=== PATIENT | female | born 1990 | race Caucasian/White ===

== ENCOUNTER 2016-11-05 03:07 | Emergency (ER) | payer MEDICAID, OTHER ==
[2016-11-05 03:18] VITALS: O2SAT 98
[2016-11-05] MEDS ORDERED: Sodium Chloride 0.9% 500 ML IV ONE (03:53)
[2016-11-05] MEDS ORDERED: Sodium Chloride 0.9% 1,000 ML ONE (04:10)
[2016-11-05 04:12] LABS: BASO # 0.1 K/uL (0.0-0.2); BASO % 0.7 % (0.0-2.0); EOS # 0.1 K/uL (0.0-0.7); EOS % 1.1 % (0.0-4.0); HEMATOCRIT 34.5 % (34.0-47.0); LYMPH # 1.9 K/uL (1.0-4.3); LYMPH % 25.2 % (20.0-40.0); MEAN CELL VOLUME 84.3 fL (81.0-99.0); MEAN CORPUSCULAR HEMOGLOBIN 28.1 pg (27.0-31.0); MEAN CORPUSCULAR HGB CONC 33.3 g/dL (33.0-37.0); MEAN PLATELET VOLUME 8.3 fL (7.2-11.7); MONO # 0.6 K/uL (0.0-0.8); MONO % 7.7 % (0.0-10.0); RED CELL DISTRIBUTION WIDTH 14.1 % (11.5-14.5); WHITE BLOOD COUNT 7.5 K/uL (4.8-10.8)
[2016-11-05 04:23] LABS: CHLORIDE 100 mmol/L (98-107); POTASSIUM 3.5 mmol/L (3.6-5.2); SODIUM 137 mmol/L (132-148)
[2016-11-05 04:25] LABS: GFR AFRICAN-AMERICAN > 60; RBC URINE 13 /hpf (0-3); URINE BACTERIA RARE (<OCC); URINE BILIRUBIN NEGATIVE (NEGATIVE); URINE BLOOD 1+ (NEGATIVE); URINE COLOR Yellow (YELLOW); URINE GLUCOSE (UA) NORMAL (Normal); URINE KETONE NEGATIVE (NEGATIVE); URINE LEUKOCYTE ESTERASE 1+ Leu/uL (Negative); URINE PROTEIN NEGATIVE (NEGATIVE); URINE UROBILINOGEN NORMAL mg/dL (0.2-1.0); WBC URINE 11 /hpf (0-5)
[2016-11-05 04:26] LABS: ALKALINE PHOSPHATASE 59 U/L (38-126); ALT/SGPT 19 U/L (9-52); AST/SGOT 20 U/L (14-36); BILIRUBIN,TOTAL 0.6 mg/dL (0.2-1.3); BLOOD UREA NITROGEN 12 mg/dL (7-17); CALCIUM 8.9 mg/dl (8.6-10.4); CARBON DIOXIDE 25 mmol/L (22-30); GLUCOSE,RANDOM 77 mg/dL (65-105); TOTAL PROTEIN 6.9 g/dL (6.3-8.3)
--- NOTE | 2016-11-05 04:30 | C.PDOC ---
History Of Present Illness 26 y/o female, , who is 22 weeks , presents to ED with complaint of left flank pain since last night. Patient reports history of kidney stones, and was seen in August for the same complaints. Denies nausea, vomiting, diarrhea, vaginal bleeding, or UTI symptoms. Time Seen by Provider: 11/05/16 03:28 Chief Complaint (Nursing): Female Genitourinary History Per: Patient History/Exam Limitations: no limitations Onset/Duration Of Symptoms: Days Current Symptoms Are (Timing): Still Present Reports Recently: Seen In ED Recent travel outside of the [place]: No Past Medical History Reviewed: Historical Data, Nursing Documentation, Vital Signs Vital Signs: Last Vital Signs Temp 98.1 F 11/05/16 03:15 Pulse 77 11/05/16 03:15 Resp 20 11/05/16 03:15 BP 108/65 11/05/16 03:15 Pulse Ox 98 11/05/16 05:09 - Medical History PMH: Kidney Stones Family History: States: Unknown Family Hx - Social History Hx Tobacco Use: No Hx Alcohol Use: No Hx Substance Use: No - Immunization History Hx Tetanus Toxoid Vaccination: No Hx Influenza Vaccination: No Hx Pneumococcal Vaccination: No Review Of Systems Except As Marked, All Systems Reviewed And Found Negative. Constitutional: Negative for: Fever, Chills Gastrointestinal: Positive for: Other (left flank pain). Negative for: Nausea, Vomiting, Diarrhea Genitourinary: Negative for: Dysuria, Frequency, Hematuria Physical Exam - Physical Exam Appears: Non-toxic, No Acute Distress Skin: Warm, Dry Head: Atraumatic, Normacephalic Oral Mucosa: Moist Chest: Symmetrical Cardiovascular: Rhythm Regular, No Murmur Respiratory: Normal Breath Sounds, No Rales, No Rhonchi, No Wheezing Gastrointestinal/Abdominal: Soft, No Tenderness, No Distention, No Guarding, No Rebound, Ascites, Other (gravid) Back: CVA Tenderness (Left), No Vertebral Tenderness, No Paraspinal Tenderness Pelvic: Other (deferred) Extremity: Normal ROM, Capillary Refill (< 2 sec. ) Neurological/Psych: Oriented x3, Normal Speech, Normal Cognition ED Course And Treatment - Laboratory Results Result Diagrams: 11/05/16 04:09 11/05/16 04:09 Urine POC: Positive O2 Sat by Pulse Oximetry: 98 (RA) Pulse Ox Interpretation: Normal Progress Note: Treated with IVFs and morphine. Labs ordered and reviewed. FHT 146 as per [place]. Pt is d/c to L& D Reevaluation Time: 05:33 Reassessment Condition: Improved (pt with moderate pain improvemnet, labs reviewed incl UA and d/w pt. Pt be d/c to L&D for NST) Disposition - Disposition Disposition: HOME/ ROUTINE Disposition Time: 05:34 Condition: STABLE Additional Instructions: Increase PO fluids Take meds as directed Follow up with your OB Return to ER if worse Prescriptions: Nitrofurantoin Macrocrystals [Macrobid] 1 cap PO BID #14 cap Instructions: Urinary Tract Infection in Women (ED) - Clinical Impression Clinical Impression: UTI (urinary tract infection) during - PA / MACHINE SEWER / Resident Statement MD/DO has reviewed & agrees with the documentation as recorded. - Scribe Statement The provider has reviewed the documentation as recorded by the Aguila Stern Provider Scribe Attestation: All medical record entries made by the Aguila were at my direction and personally dictated by me. I have reviewed the chart and agree that the record accurately reflects my personal performance of the history, physical exam, medical decision making, and the department course for this patient. I have also personally directed, reviewed, and agree with the discharge instructions and disposition.
[2016-11-05 06:08] VITALS: BP 126/76; PULSE 75; RESP 18; TEMP 98.3
--- NOTE | 2016-11-06 10:29 | OBHP ---
Datetime: 11/05/2016 07:26 IP Adm Impression: , intrauterine IP Chief Complaint Other: Patient evaluated Main ED for left flank pain and sent for evaluati on. No more pain IP Admit Plan: Discharge home Pelvic Type - PN: Adequate Extremities - PN: Normal Abdomen - PN: Normal Back - PN: Normal Breast - PN: Not Done Lungs - PN: Normal Heart - PN: Normal Thyroid - PN: Not Done Neurologic - PN: Not Done HEENT - PN: Not Done General - PN: Normal FHR - Baseline A Provider: 150 Membranes, Provider: Intact Vital Signs Provider: Reviewed; Within Normal Limits IP Chief Complaint: evaluation NICHD Variability Prov Fetus A: Moderate 6-25bpm Genitourinary Exam: Normal DTRs - PN: Normal
--- NOTE | 2016-11-06 10:42 | OBDCSUM ---
Datetime: 11/05/2016 07:32 Discharge Time: 11/05/2016 07:32 Discharge Diagnosis Prov Other: 22 weeks Gestation
== END 2016-11-05 07:32 | disposition home or self-care (01) ==
LOC: C.EROB 03:07 → C.ER 03:07 → C.EROB 07:32
DX: O23.42 Unspecified infection of urinary tract in pregnancy, second trimester (principal); Z3A.22 22 weeks gestation of pregnancy
CPT/HCPCS: 80053; 81001; 85025; 96374; 99284; J2270; J7040